=== PATIENT | female | born 1985 | race Two or more races ===

== ENCOUNTER 2023-09-29 00:09 | Emergency (ER) | payer SELFPAY ==
[~2023-09-29] VITALS: Ht 172.7 cm; Wt 57.6 kg
[2023-09-29] MEDS ORDERED: IV NS 0.9% 1,000 ML BAG IV ONE (00:30)
[2023-09-29] MEDS ORDERED: KETOROLAC TROMETHAMINE 15 MG/ML VIAL IV ONE (00:30)
[2023-09-29] MEDS ORDERED: diphenhydrAMINE HCL 50 MG/ML VIAL IV ONE (00:30)
[2023-09-29] MEDS ORDERED: PROCHLORPERAZINE EDISYLATE 10 MG/2 ML VIAL IVP ONE (00:30)
[2023-09-29] MEDS ORDERED: KETOROLAC TROMETHAMINE 15 MG/ML VIAL ONE (00:32)
[2023-09-29] MEDS ORDERED: diphenhydrAMINE HCL 50 MG/ML VIAL ONE (00:32)
[2023-09-29] MEDS ORDERED: PROCHLORPERAZINE EDISYLATE 10 MG/2 ML VIAL ONE (00:32)
[2023-09-29] MEDS ORDERED: SUMA100T16 PO (02:13)
[2023-09-29 02:25] VITALS: BP 110/81; TEMP 98.2; O2SAT 98
== END 2023-09-29 02:26 | disposition home or self-care (01) ==
LOC: ER 00:11
DX: R51.9 Headache, unspecified (principal)
CPT/HCPCS: 99284; 96374; 96375; 96361; J0780; J1200; J7030; J1885